=== PATIENT | female | born 1970 | race Caucasian/White ===

== ENCOUNTER 2018-06-10 08:26 | Day surgery (SDC) | payer OTHER ==
[~2018-06-10] VITALS: Ht 154.9 cm; Wt 67.2 kg
[~2018-06-10 08:26] MED LIST: ALBU18HF INH; FENTANYL PF 250 MCG/5ML ONE; HYDR25TA6 PO; INDIGO CARMINE 0.8%, 5ML ONE; LIDOCAINE 1%-EPI 1:100K, 30ML ONE; METO50TA82 PO; MIDAZOLAM 1 MG/ML, 2ML ONE
[2018-06-10] MEDS ORDERED: GABAPENTIN 300 MG CAPSULE PO ONE (09:00)
[2018-06-10] MEDS ORDERED: SCOPOLAMINE PATCH, 1.5MG PATCH.TD72 TD ONE (09:00)
[2018-06-10] MEDS ORDERED: DIAZEPAM 5 MG TABLET PO ONE (09:00)
[2018-06-10] MEDS ORDERED: ACETAMINOPHEN 500 MG TABLET PO ONE (09:00)
[2018-06-10] MEDS ORDERED: PROPOFOL 10 MG/ML, 20ML ONE (09:06)
[2018-06-10] MEDS ORDERED: CEFAZOLIN 1,000 MG ONE ×2 (09:06)
[2018-06-10] MEDS ORDERED: DEXAMETHASONE 4 MG/ML, 1ML ONE ×2 (09:06)
[2018-06-10] MEDS ORDERED: ROCURONIUM 10MG/ML,5ML ONE (09:07)
[2018-06-10] MEDS ORDERED: SUCCINYLCHOLINE 20 MG/ML, 10ML ONE (09:07)
[2018-06-10] MEDS ORDERED: FUROSEMIDE 20 MG/2 ML ONE (09:09)
[2018-06-10] MEDS: LACTATED RINGERS 1,000 ML IV SCH ×2 (09:10→15:05)
[2018-06-10] MEDS ORDERED: NEOMY/POLYMYXIN B GU IRR. 1 ML IRRIG ONE (09:15)
[2018-06-10 09:19] VITALS: BP 139/87
[2018-06-10] MEDS ORDERED: ONDANSETRON 2MG/ML, 2ML ONE (09:24)
[2018-06-10] MEDS ORDERED: PROMETHAZINE 12.5 MG SUPP PR PRN (09:30)
[2018-06-10] MEDS ORDERED: ONDANSETRON ODT 8 MG PO PRN (09:30)
[2018-06-10] MEDS ORDERED: EPHEDRINE 50 MG/ML, 1ML IVPush PRN (09:30)
[2018-06-10] MEDS ORDERED: OXYcodone 5 MG/5 ML ORAL.SOL UDC PO PRN (09:30)
[2018-06-10] MEDS ORDERED: ONDANSETRON 2MG/ML, 2ML IV PRN ×2 (09:30→13:30)
[2018-06-10] MEDS ORDERED: LABETALOL 5MG/ML, 20ML IV PRN (09:30)
[2018-06-10] MEDS ORDERED: DIAZEPAM 5 MG/ML, 2ML IVPush PRN (09:30)
[2018-06-10] MEDS ORDERED: MIDAZOLAM 1 MG/ML, 2ML IV PRN (09:30)
[2018-06-10] MEDS ORDERED: HALOPERIDOL 5 MG/ML IV PRN (09:30)
[2018-06-10] MEDS ORDERED: FENTANYL PF 100 MCG/2ML IV PRN (09:30)
[2018-06-10] MEDS ORDERED: MORPHINE SULFATE 4 MG/ML, 1ML IVPush PRN (09:30)
[2018-06-10] MEDS ORDERED: hydrALAzine 20 MG/ML, 1ML IV PRN (09:30)
[2018-06-10] MEDS ORDERED: ALBUTEROL SULFATE 2.5 MG/3 ML NPPB PRN (09:30)
[2018-06-10] MEDS ORDERED: MEPERIDINE/PF 25MG/0.5ML IVPush PRN (09:30)
[2018-06-10] MEDS ORDERED: PROMETHAZINE 25 MG/ML, 1ML IV PRN (09:30)
[2018-06-10] MEDS ORDERED: FENTANYL PF 100 MCG/2ML ONE (10:14)
[2018-06-10] MEDS ORDERED: THROMBIN 5,000 UNIT VIAL TP ONE (10:52)
[2018-06-10] MEDS ORDERED: KETOROLAC 30 MG/1 ML ONE (11:08)
[2018-06-10] MEDS ORDERED: OXYcodone 5 MG/5 ML ORAL.SOL UDC ONE (11:29)
[2018-06-10] MEDS ORDERED: HYDROmorphone 2 MG/ML, 1ML ONE (11:29)
[2018-06-10] MEDS ORDERED: hydrALAzine 20 MG/ML, 1ML ONE (11:43)
[2018-06-10] MEDS: HYDROmorphone 2 MG/ML, 1ML IVPush PRN ×4 (11:50→12:20)
[2018-06-10] MEDS ORDERED: MEPERIDINE/PF 50 MG/ML ONE (12:08)
[2018-06-10] MEDS ORDERED: LACTATED RINGERS 1,000 ML IV SCH (13:30)
[2018-06-10 15:03] VITALS: BP 108/66
[2018-06-10] MEDS ORDERED: HYDR-3653 PO (20:10)
[2018-06-10 20:47] VITALS: BP 115/76
== END 2018-06-10 21:25 | disposition home or self-care (01) ==
LOC: OUT 08:26 → 4NOR 12:56 → OUT 21:25
PROVIDERS: ATTEND Obstetrics & Gynecology Gynecology
DX: D25.0 Submucous leiomyoma of uterus (principal); N81.4 Uterovaginal prolapse, unspecified; N39.3 Stress incontinence (female) (male); I10 Essential (primary) hypertension; J45.909 Unspecified asthma, uncomplicated; Z88.1 Allergy status to other antibiotic agents; Z88.8 Allergy status to other drugs, medicaments and biological substances
CPT/HCPCS: 36415; 57288; 58263; 81025; 85014; 88307; C1771; J0330; J0360; J0690; J1100; J1170; J1885; J1940; J2250; J2405; J2704; J3010; J3490; J7120; G0378

== ENCOUNTER 2018-06-12 19:23 | Emergency (ER) | payer OTHER ==
[~2018-06-12] VITALS: Ht 154.9 cm; Wt 69.2 kg
[~2018-06-12 19:23] MED LIST changes: -FENTANYL PF 250 MCG/5ML ONE; +HYDR-3653 PO; -INDIGO CARMINE 0.8%, 5ML ONE; -LIDOCAINE 1%-EPI 1:100K, 30ML ONE; -MIDAZOLAM 1 MG/ML, 2ML ONE
[2018-06-12] MEDS ORDERED: ONDANSETRON 2MG/ML, 2ML ONE (19:45)
[2018-06-12] MEDS ORDERED: MORPHINE SULFATE 4 MG/ML, 1ML ONE ×2 (19:46→23:17)
[2018-06-12] MEDS: MORPHINE SULFATE 4 MG/ML, 1ML IVPush PRN ×2 (19:50→23:21)
[2018-06-12] MEDS ORDERED: SODIUM CHLORIDE FLUSH 10ML SYR IVF ONE (20:00)
[2018-06-12] MEDS ORDERED: ONDANSETRON 2MG/ML, 2ML IVPush ONE (20:00)
[2018-06-12 20:07] LABS: BASOPHILS # (AUTO) 0.05 x10^3/uL (0-0.1); BASOPHILS % (AUTO) 0 % (0-1); EOSINOPHILS # (AUTO) 0.35 x10^3/uL (0-0.4); EOSINOPHILS % (AUTO) 2 % (1-7); LYMPHOCYTES % (AUTO) 28 % (22-44); MD NO; MEAN CORPUSCULAR HEMOGLOBIN 31.4 pg (27.0-34.8); MEAN CORPUSCULAR HGB CONC 33.6 g/dL (32.4-35.8); MEAN CORPUSCULAR VOLUME 93.3 fL (80-100); MEAN PLATELET VOLUME 8.6 fL (7.4-10.4); MONOCYTES # (AUTO) 0.43 x10^3/uL (0.2-0.8); MONOCYTES % (AUTO) 3 % (2-9); NEUTROPHILS # (AUTO) 9.71 x10^3/uL (1.8-6.8); NEUTROPHILS % (AUTO) 67 % (42-75); PLATELET COUNT 306 x10^3/uL (130-400); RED BLOOD COUNT 4.72 x10^6/uL (3.82-5.3); RED CELL DISTRIBUTION WIDTH 12.1 % (9.6-15.2)
[2018-06-12 20:16] LABS: ALANINE AMINOTRANSFERASE 19 U/L (12-78); ALBUMIN 3.3 g/dL (3.4-5.0); ANION GAP 6 mmol/L (5-15); CALCIUM 8.6 mg/dL (8.5-10.1); CHLORIDE 104 mmol/L (98-107); CREATININE 0.93 mg/dL (0.55-1.02)
[2018-06-12 20:18] LABS: ALKALINE PHOSPHATASE 47 U/L (45-117); BILIRUBIN,TOTAL 0.3 mg/dL (0.2-1.0); TOTAL PROTEIN 6.5 g/dL (6.4-8.2)
[2018-06-12 20:30] LABS: CULTURE INDICATED? YES; MICROSCOPIC INDICATED
[2018-06-12] MEDS ORDERED: OMNIPAQUE 350 MG/ML, 100ML BOTTLE ONE (20:43)
[2018-06-12 22:10] LABS: MICROSCOPIC NOT IND
[2018-06-12] MEDS ORDERED: METHYLNALTREXONE 12 MG/0.6 ML SQ ONE ×2 (22:20→22:30)
[2018-06-12 22:29] LABS: CULTURE INDICATED? NO
[2018-06-12 23:26] VITALS: BP 119/85
== END 2018-06-12 23:28 | disposition home or self-care (01) ==
LOC: ED 23:08
DX: R10.84 Generalized abdominal pain (principal)
CPT/HCPCS: 36415; 74177; 80053; 81001; 81003; 85025; 87086; 96372; 96374; 96375; 96376; 99284; J2405; Q9967